=== PATIENT | female | born 2000 | race Caucasian/White ===

== ENCOUNTER 2023-11-27 11:32 | Outpatient (REF) | payer BC, SELFPAY ==
[2023-11-28 13:47] LABS: Immunoglobulin E 277 kU/L (<OR=114)
== END 2023-11-27 11:33 | disposition home or self-care (01) ==
LOC: HO.10HDL 11:32
PROVIDERS: Visit Provider Otolaryngology
DX: J30.89 Other allergic rhinitis (principal)
CPT/HCPCS: 36415; 82785; 86003